=== PATIENT | male | born 1990 | race Hispanic/Latino ===

== ENCOUNTER → 2019-01-11 | Outpatient (CLI) | payer OTHER ==
--- NOTE | 2019-01-11 17:30 | Diagnostic Imaging Report ---
EXAM: CT Chest WITHOUT intravenous contrast 01/11/2019 4:00 PM INDICATION: Trauma COMPARISON: None TECHNIQUE: Chest was scanned utilizing a multidetector helical scanner from the lung apex through the level of the adrenal glands without administration of IV contrast. Coronal and sagittal reformations were obtained. Routine protocol was performed. IV CONTRAST: None RADIATION DOSE: Total DLP: 328.6 mGy*cm. Dose modulation, iterative reconstruction, and/or weight based adjustment of the mA/kV was utilized to reduce the radiation dose to as low as reasonably achievable. COMPLICATIONS: None FINDINGS: LINES/ TUBES: None. LUNGS AND AIRWAYS: The central airways are patent. No focal consolidation or pulmonary edema. No evidence of pulmonary contusion or laceration. Mild biapical pleural parenchymal thickening/scarring. 4 mm right middle lobe pulmonary nodule (series 2 image 70). No other suspicious pulmonary nodules. PLEURA: The pleural spaces are clear. HEART AND MEDIASTINUM: The thyroid gland is normal. No mediastinal, hilar or axillary lymphadenopathy. The heart is normal in size.. There is no pericardial effusion. UPPER ABDOMEN: Limited non-contrast views of the upper abdomen show no abnormality within the visualized liver, spleen, pancreas, or kidneys. The adrenal glands are normal. BONES: No acute osseous injury. No suspicious lytic or blastic lesions. SOFT TISSUES: Unremarkable. IMPRESSION: No evidence of traumatic injury to the thorax. 4 mm right middle lobe pulmonary nodule. If the patient is low risk, no further follow-up is needed. If the patient is high risk, CT is optional at 12 months per [employer] guidelines 2017. Signed by: Angel Crabtree MD on 01/11/2019 5:26 PM
== END ==
LOC: CT 16:40
PROVIDERS: ATTEND Family Medicine
DX: S29.9XXA Unspecified injury of thorax, initial encounter (principal); R91.8 Other nonspecific abnormal finding of lung field
CPT/HCPCS: 71250